=== PATIENT | female | born 2005 | race Caucasian/White ===

== ENCOUNTER 2025-04-21 08:56 | Outpatient (CLI) | payer OTHER, SELFPAY | END 2025-04-21 08:57 | disposition home or self-care (01) | LOC: KYNREF 08:59 | PROVIDERS: PCP Nurse Practitioner Family; Visit Provider Nurse Practitioner Family | DX: R10.31 Right lower quadrant pain (principal) | CPT/HCPCS: 81001; 87086 ==

== ENCOUNTER 2025-04-28 07:18 | Outpatient (CLI) | payer OTHER, SELFPAY ==
--- NOTE | 2025-04-28 07:15 | CRLHL7_ITS ---
For Patients: As a result of the Century Cures Act, medical imaging exams and procedure reports are released immediately into your electronic medical record. You may view this report before your referring provider. If you have questions, please contact your health care provider. CLINICAL HISTORY: Right lower quadrant pain COMPARISON: None. TECHNIQUE: 2D breen-scale ultrasound. In addition, color Doppler and spectral Doppler analysis was performed of the pelvis using a transabdominal and transvaginal approach. Transvaginal imaging performed to better visualize the endometrial stripe and ovaries. FINDINGS: The uterus measures 8.0 x 3.4 x 5.3 cm. No uterine fibroid. Bicornuate uterus. Right horn measures 6.6 millimeters and the left horn measures 5.8 millimeters. The right ovary measures 2.8 x 3.5 x 2.2 cm in size and the left ovary measures 3.9 x 2.2 x 3.2 cm. The ovaries demonstrate normal arterial and venous blood flow on color Doppler and spectral Doppler analysis. There are no suspicious fluid collections within the cul-de-sac. IMPRESSION: Normal right ovary. No torsion or adnexal mass. No excess pelvic free fluid or uterine fibroid. Incidental bicornuate uterus. Dictated by Giovanni Jack MD @ 04/28/2025 8:52:22 AM (Electronically Signed)
--- OUTSIDE RECORDS SUMMARY | 2025-04-28 07:28 | XMS_ITS | Clinical Summary ---
Author Organization [facility] Address [address] [place] [id number] Care Team Providers Care Educational Administrator Name Role Phone Colleen Martins MD Primary Care Provider Allergies No known active allergies Medications No known medications Active Problems No known active problems Immunizations Immunization Administration Dates Next Due DTaP 11/03/2006 LMaS-HfkJ-CAS (Pediarix) 2005,2005,0 2005 DTaP-IPV (Kinrix) 12/30/2010 HIB PRP-OMP (PedvaxHIB) 11/03/2006,2005, HPV 9 (Gardasil 9) 05/21/2020 Hepatitis A (Peds) 04/23/2018,07/11/2006 Influenza A (H1N1), Inactivated 09/10/2009 Influenza A (H1N1), Inactiva yunior (Age >=3 Years) 10/08/2009 Influenza, IIV3 (Age 6-35 mos) 09/10/2007,2005,2005 Influenza, IIV3 (Age >=3 years) 11/03/2008 Influenza,LAIV4 Live Intrana irene (Flumist) 09/10/2009 MENINGOCOCCAL VACCINE 2 VIAL 2MO-55YO (MENVEO) 06/10/2021,04/23/2018 MMR 12/30/2010 MMRV 07/11/2006 Pneumococcal conj 13-Valent (Prevnar 13) 12/30/2010 Pneumococcal conj 7-Valent (Prevnar 7) 1 ,2005,2005,08/01 Tdap 04/23/2018 Varicella Vaccine 12/30/2010 Family History Medical History Relation Name Comments Good Health Father Testicular cancer Father Good Health Mother Coronary artery disease Other great grandfather mat Relation Name Status Comments Father Mother Other great grandfather mat Social History Tobacco Use Types Packs/Day Years Used Date Smoking Tobacco: Never Passive Smoke Exposure: Never Smokeless Tobacco: Never Tobacco Cessation:Counseling Given: Yes Alcohol Use Standard Drinks/Week Comments No 0 (1 standard drink = 0.6 oz pur e alcohol) PHQ-2 Answer Date Recorded PHQ-2 TOTAL SCORE 1 2023 Social Connections Answer Date Recorded Do you often feel lonely or isolated from those around you? 0 03/14/2024 Financial Resource Strain Answer Date R ecorded Difficulty of Paying Living Expenses 3 03/14/2024 Difficulty of Paying Living Expenses Not on file 03/14/2024 Food Insecurity Answer Date Recorded Do you worry your food will run out before you are able to buy more? 1 03/14/2024 Transportation Needs Answer Date Record ed Does lack of transportation keep you from medica l appointments? 1 03/14/2024 Does lack of transportation keep you from work, meetings or getting things that you need? 1 03/14/2024 Housing Stability Answer Date Recorded What is your housing situation today? 1 03/14/2024 Utilities Answer Date Recorded Do you have trouble paying f or utilities (for example, heat, electricity, water, phone)? 1 03/14/2024 Comments No Sex and Gender Information Value Date Recorded Sex Assigned at Not on file Legal Sex Female 7:10 AM [employer] Gender Identity Not on file Sexual Orientation Not on file Obstetrics History Last Filed Vital Signs Vital Sign Reading Time Taken Comments Blood Pressure 102/65 03/14/2024 1:35 PM CDT Pulse 64 03/14/2024 1:35 PM CDT Temperature 37.2 C (98.9 F) 05/21/2020 8:27 AM CDT Respiratory Rate 12 06/10/2021 2:50 PM CDT Oxygen Saturation 100% 03/14/2024 1:35 PM CDT Inhaled Oxygen Concentration - - Weight 70.8 kg (156 lb) 03/14/2024 1:35 PM CDT Height 183.7 cm (6' 0.32) 2023 7:35 AM CD T Body Mass Index - - Plan of Treatment Health Maintenance Due Date Last Done Comments HIV for age 15-65 2020 HPV series for age 9-26 (2 - 2-dose series) 11/21/2020 05/21/2020 Hepatitis C screening for age 18-79 2023 BMI (ht and wt on same day) for age 18+ 2024 2023 Depression screening for age 12+ 2024 2023, 06/10/2021, 05/21/2020 Well Child Check for age 3-20 2024 2023, 06/10/2021, 05/21/2020, Additional history exists COVID-19 vaccine series ( season) 2024 Influenza Vaccine (Season Ended) 2025 09/10/2009, 11/03/2008, 09/10/2007, Additional history exists Tetanus booster 04/23/2028 04/23/2018 Hepatitis B series for 19+ Completed 12/23, 2005, 2005 Pneumococcal series for age 6-49 Aged Out 12/30/2010, 11/03/2006, 2005, Additional history exists No longer eligible based on patient's age to complete this topic Tdap Completed 04/23/2018 Meningococcal series for age 11-21 Completed 06/10/2021, 04/23/2018 Insurance KAYLA CALLAHAN [id number] [address] KAYLA CALLAHAN [id number] Care Teams Educational Administrator Relationship Specialty Start Date End [place] [id number] PCP - General Family Practice 06/01/23
== END 2025-04-28 07:19 | disposition home or self-care (01) ==
PROVIDERS: PCP Nurse Practitioner Family; Visit Provider Nurse Practitioner Family
DX: R10.31 Right lower quadrant pain (principal)
CPT/HCPCS: 76830; 76856; 93976